=== PATIENT | female | born 1995 | race African-American/Black ===

== ENCOUNTER 2016-11-01 11:55 | Emergency (ER) | payer SELFPAY ==
[~2016-11-01] VITALS: Ht 162.6 cm
[2016-11-01 13:47] LABS: CHLORIDE 109 mEq/L (99-109); POTASSIUM 5.3 mEq/L (3.7-5.4); SODIUM 139 mEq/L (136-147)
[2016-11-01 13:49] LABS: GLUCOSE 104 mg/dL (70-99)
[2016-11-01 13:53] LABS: GFR ESTIMATE (CALCULATED) > 59 mL/min/; UREA NITROGEN (BUN) 9 mg/dL (9-23)
[2016-11-01 14:01] LABS: QUANTITATIVE HCG < 4.0 MIU/ML
[2016-11-01 14:11] LABS: ADD MIUA? YES; BILIRUBIN NEGATIVE; BLOOD NEGATIVE; COLOR YELLOW ((YELLOW)); GLUCOSE (STRIP) NEGATIVE; KETONES TRACE; LEUKOCYTES NEGATIVE; NITRITE NEGATIVE; PH, URINE 5.5 (5-8); PROTEIN (STRIP) TRACE; SPECIFIC GRAVITY 1.032 (1.000-1.030); UROBILINOGEN 0.2 MG/DL (0.2-1.0)
[2016-11-01 14:48] LABS: AMORPHOUS URATES CRYSTALS 3+; BACTERIA 1+; CASTS NONE SEEN /LPF; CRYSTALS PRESENT; EPITHELIAL CELLS 1+; MUCUS NONE SEEN; RED BLOOD CELLS 0-5 /HPF (0-5); WHITE BLOOD CELLS 0-5 /HPF (0-5)
[2016-11-01 14:53] LABS: ANION GAP 12 MEQ/L (2-14)
[2016-11-01] MEDS ORDERED: BENTYL10 MG PO (15:15)
[2016-11-01] MEDS ORDERED: ZOFRAN ODT8 MG PO (15:15)
[2016-11-01 15:33] VITALS: BP 126/61
== END 2016-11-01 15:34 | disposition home or self-care (01) ==
LOC: EME 11:55
PROVIDERS: Physician Assistant
DX: R11.10 Vomiting, unspecified (principal); R10.11 Right upper quadrant pain
CPT/HCPCS: 80048; 81003; 84702; 99281; 99283